=== PATIENT | female | born 1985 | race Caucasian/White ===

== ENCOUNTER 2018-03-05 00:01 | Inpatient (IN) | payer BC ==
[~2018-03-05] VITALS: Ht 157.5 cm; Wt 63.5 kg
[2018-03-05] MEDS ORDERED: AMPICILLIN SODIUM 2 GM in NS 100 ML IV ONE (01:00)
[2018-03-05] MEDS ORDERED: NALBUPHINE HCL 10 MG/ML AMP IVP PRN (01:00)
[2018-03-05] MEDS ORDERED: TERBUTALINE SULFATE 1 MG/ML VIAL SUBCUT ONE (01:00)
[2018-03-05] MEDS ORDERED: OXYTOCIN/0.9 % SODIUM CHLORIDE 1,000 ML IV ONE (01:01)
[2018-03-05 01:14] LABS: BASOPHILS % (AUTO) 0.2 % (0.0-2.0); EOSINOPHILS % (AUTO) 0.5 % (0.0-4.0); HEMATOCRIT 36.9 % (36-48); HEMOGLOBIN 12.4 g/dL (12.0-16.0); LYMPHOCYTES % (AUTO) 24.3 % (20.5-51.5); MEAN CORPUSCULAR HEMOGLOBIN 30 pg (27-31); MEAN CORPUSCULAR HGB CONC 34 % (32-36); MEAN CORPUSCULAR VOLUME 88 fL (79.0-98.0); MONOCYTES # (AUTO) 0.6 K/uL (0.0-1.0); MONOCYTES % (AUTO) 7.8 % (1.7-9.3); NEUTROPHILS # (AUTO) 5.5 K/uL (1.8-7.7); NEUTROPHILS % (AUTO) 67.2 % (40.0-70.0); PLATELET COUNT (AUTO) 120 K/uL (130-430); RED CELL DISTRIBUTION WIDTH 12.7 % (9.0-15.0); WHITE BLOOD COUNT (AUTO) 8.1 K/uL (4.8-10.8)
[2018-03-05] MEDS: OXYTOCIN/0.9 % SODIUM CHLORIDE 1,000 ML IV SCH ×2 (01:18→21:49)
[2018-03-05] MEDS: LR 1,000 ML IV SCH ×4 (01:18→21:47)
[2018-03-05] MEDS ORDERED: AMPICILLIN SODIUM 2 GM VIAL ONE (01:21)
[2018-03-05 01:40] VITALS: BP_SYST 128
[2018-03-05] MEDS ORDERED: AMPICILLIN SODIUM 1 GM VIAL ONE ×2 (05:38→17:03)
[2018-03-05] MEDS: AMPICILLIN SODIUM 1 GM in NS 50 ML IV SCH ×5 (05:40→21:45)
[2018-03-05] MEDS ORDERED: fentaNYL CITRATE/PF 100 MCG/2 ML AMP ONE (13:11)
[2018-03-05] MEDS ORDERED: ROPIVACAINE 0.2% 100 ML ONE (13:12)
[2018-03-05] MEDS ORDERED: ROPIVACAINE 0.2% 100 ML EPI ONE (17:00)
[2018-03-05] MEDS ORDERED: fentaNYL CITRATE/PF 100 MCG/2 ML AMP EP ONE (17:00)
[2018-03-06] MEDS: IBUPROFEN 600 MG TABLET PO SCH
[2018-03-06] MEDS ORDERED: LR 1,000 ML IV ONE (01:18)
[2018-03-06] MEDS ORDERED: CEFAZOLIN 2 GM IVPB PREMIX 50 ML IV SCH (01:30)
[2018-03-06] MEDS ORDERED: CEFAZOLIN 2 GM IVPB PREMIX 50 ML IV ONE (01:37)
[2018-03-06] MEDS ORDERED: MEPERIDINE HCL/PF 50 MG/ML AMP ONE (01:40)
[2018-03-06] MEDS ORDERED: MEPERIDINE HCL/PF 25 MG/ML DISP.SYRIN IVP PRN (02:45)
[2018-03-06] MEDS ORDERED: MORPHINE 4 MG/ML INJ. SYRINGE IVP PRN (02:45)
[2018-03-06] MEDS ORDERED: fentaNYL CITRATE/PF 100 MCG/2 ML AMP IVP PRN (02:45)
[2018-03-06] MEDS ORDERED: ONDANSETRON HCL 4 MG/2 ML VIAL IVP ONE ×2 (02:45→03:15)
[2018-03-06] MEDS ORDERED: NALOXONE HCL 0.4 MG/ML AMP (NARCAN) IVP ONE (02:45)
[2018-03-06] MEDS ORDERED: MIDAZOLAM HCL 5 MG/5 ML VIAL IVP PRN (02:45)
[2018-03-06] MEDS ORDERED: KETOROLAC TROMETHAMINE 30 MG VIAL IM ONE (02:45)
[2018-03-06] MEDS ORDERED: OXYTOCIN/0.9 % SODIUM CHLORIDE 1,000 ML IV ONE (02:46)
[2018-03-06] MEDS ORDERED: LR 1,000 ML IV SCH ×2 (02:46→10:18)
[2018-03-06] MEDS ORDERED: DOCUSATE SODIUM 100 MG CAPSULE PO PRN (03:00)
[2018-03-06] MEDS ORDERED: MEASLES,MUMPS&RUBELLA VACC/PF 12500 UNIT/0.5 ML VIAL SUBQ PRN (03:00)
[2018-03-06] MEDS ORDERED: SENNOSIDES/DOCUSATE SODIUM 1 TAB TABLET(SENOKOT-S) PO PRN (03:00)
[2018-03-06] MEDS ORDERED: OXYCODONE/ACETAMINOPHEN 5-325 TABLET PO PRN ×2 (03:00)
[2018-03-06] MEDS ORDERED: DIPH-TET-PERTUS Vaccine 0.5 ML VIAL (ADACEL) I.M. PRN (03:00)
[2018-03-06] MEDS ORDERED: LANOLIN 7 GM OINT. TP PRN (03:00)
[2018-03-06] MEDS ORDERED: ANUSOL 1 EA SUPP.RECT (PREPARATION H) RC PRN (03:00)
[2018-03-06] MEDS ORDERED: SIMETHICONE 80 MG TAB.CHEW PO PRN (03:00)
[2018-03-06] MEDS ORDERED: BISACODYL 10 MG/SUPPOSITORY RC PRN ×2 (03:00→10:30)
[2018-03-06] MEDS ORDERED: RHO(D) IMMUNE GLOBULIN/MALTOSE 1500 UNITS/1.3 ML (WINHRO) IM PRN (03:00)
[2018-03-06] MEDS ORDERED: LR 1,000 ML IV.SOLN IV ONE (03:15)
[2018-03-06] MEDS ORDERED: METHYLERGONOVINE MALEATE 0.2 MG/ML AMP IM ONE (03:15)
[2018-03-06] MEDS ORDERED: MIDAZOLAM HCL 5 MG/ML VIAL (VERSED) IV ONE (03:15)
[2018-03-06] MEDS ORDERED: MEPERIDINE HCL/PF 25 MG/ML DISP.SYRIN IVP ONE (03:15)
[2018-03-06] MEDS ORDERED: NS IRRIG SOLN 1000 ML IR ONE (03:15)
[2018-03-06] MEDS ORDERED: LIDOCAINE MPF 2% 5mL VIAL INJ ONE (03:15)
[2018-03-06] MEDS ORDERED: MORPHINE SULFATE 10MG/10ML PF AMP EP ONE (03:15)
[2018-03-06] MEDS ORDERED: fentaNYL CITRATE/PF 100 MCG/2 ML AMP IVP ONE (03:15)
[2018-03-06] MEDS ORDERED: HEMABATE 250MCG/ML VIAL AMP IM ONE (03:15)
[2018-03-06 03:20] VITALS: BP_SYST 120
[2018-03-06] MEDS: METHYLERGONOVINE MALEATE 0.2 MG TABLET PO SCH ×4 (05:32→22:00)
[2018-03-06] MEDS ORDERED: IBUPROFEN 600 MG TABLET PO SCH (06:00)
[2018-03-06] MEDS: CEFAZOLIN 1 GM IVPB PREMIX 50 ML IV SCH ×2 (08:03→14:08)
[2018-03-06] MEDS ORDERED: MEPERIDINE HCL/PF 50 MG/ML AMP IVP PRN (10:30)
[2018-03-06] MEDS ORDERED: ONDANSETRON HCL 4 MG/2 ML VIAL IVP PRN (10:30)
[2018-03-06] MEDS ORDERED: KETOROLAC TROMETHAMINE 30 MG VIAL IVP SCH (12:00)
[2018-03-06] MEDS: DOCUSATE SODIUM 100 MG CAPSULE PO PRN (20:47)
[2018-03-06] MEDS: SIMETHICONE 80 MG TAB.CHEW PO PRN (20:48)
[2018-03-06] MEDS ORDERED: TEMAZEPAM 15 MG CAPSULE PO PRN ×2 (21:00)
[2018-03-07] MEDS: IBUPROFEN 600 MG TABLET PO SCH ×3 (05:55→17:40)
[2018-03-07] MEDS ORDERED: HYDROmorphone 2 MG/ML VIAL IVP PRN (07:00)
[2018-03-07 07:15] LABS: BASOPHILS # (AUTO) 0.1 K/uL (0.0-0.2); BASOPHILS % (AUTO) 0.2 % (0.0-2.0); EOSINOPHILS # (AUTO) 0.1 K/uL (0.0-0.4); EOSINOPHILS % (AUTO) 0.2 % (0.0-4.0); HEMATOCRIT 28.4 % (36-48); HEMOGLOBIN 9.4 g/dL (12.0-16.0); LYMPHOCYTES # (AUTO) 2.4 K/uL (1.0-5.5); LYMPHOCYTES % (AUTO) 9.4 % (20.5-51.5); MEAN CORPUSCULAR HEMOGLOBIN 30 pg (27-31); MEAN CORPUSCULAR HGB CONC 33 % (32-36); MEAN CORPUSCULAR VOLUME 90 fL (79.0-98.0); MONOCYTES # (AUTO) 1.2 K/uL (0.0-1.0); MONOCYTES % (AUTO) 4.7 % (1.7-9.3); NEUTROPHILS # (AUTO) 21.7 K/uL (1.8-7.7); NEUTROPHILS % (AUTO) 85.5 % (40.0-70.0); PLATELET COUNT (AUTO) 151 K/uL (130-430); RED BLOOD CELL COUNT(AUTO) 3.15 MIL/uL (4.2-6.2); RED CELL DISTRIBUTION WIDTH 12.9 % (9.0-15.0); WHITE BLOOD COUNT (AUTO) 25.5 K/uL (4.8-10.8)
[2018-03-07] MEDS: OXYCODONE/ACETAMINOPHEN 5-325 TABLET PO PRN (11:46)
[2018-03-08] MEDS: IBUPROFEN 600 MG TABLET PO SCH ×4 (00:15→17:44)
[2018-03-08] MEDS: SENNOSIDES/DOCUSATE SODIUM 1 TAB TABLET(SENOKOT-S) PO PRN ×2 (00:27→17:44)
[2018-03-08] MEDS: SIMETHICONE 80 MG TAB.CHEW PO PRN (01:31)
[2018-03-08] MEDS: OXYCODONE/ACETAMINOPHEN 5-325 TABLET PO PRN (01:33)
[2018-03-08] MEDS: DOCUSATE SODIUM 100 MG CAPSULE PO PRN (17:44)
[2018-03-09] MEDS: IBUPROFEN 600 MG TABLET PO SCH ×2 (05:55)
== END 2018-03-09 11:15 | disposition home or self-care (01) | DRG 765 ==
LOC: SPU 00:01
PROVIDERS: ADMIT Obstetrics & Gynecology; ATTEND Obstetrics & Gynecology
PROC: 10D00Z1 Extraction of Products of Conception, Low, Open Approach (ICD-10-PCS; principal; 2018-03-06 00:30)
DX: O99.824 Streptococcus B carrier state complicating childbirth (principal); O30.033 Twin pregnancy, monochorionic/diamniotic, third trimester; Z37.2 Twins, both liveborn; O62.0 Primary inadequate contractions; O62.2 Other uterine inertia; O62.1 Secondary uterine inertia; Z3A.36 36 weeks gestation of pregnancy
CPT/HCPCS: 36415; 81002-TC; 85025; 86592; 86886; 86900; 86901; 94760; J0290; J0690; J2001; J2175; J2210; J2250; J2274; J2405; J2590; J2795; J3010; J7120